=== PATIENT | female | born 1970 | race Caucasian/White ===

== ENCOUNTER 2018-05-31 18:21 | Emergency (ER) | payer OTHER ==
[~2018-05-31] VITALS: Ht 147.3 cm; Wt 63.6 kg
[2018-05-31 18:24] VITALS: Ht 147.3 cm; Wt 63.6 kg
[2018-05-31] MEDS ORDERED: PRINIVIL10 MG PO (18:27)
[2018-05-31] MEDS ORDERED: CYMBALTA60 MG PO (18:27)
[2018-05-31] MEDS ORDERED: ABILIFY2 MG PO (18:27)
[2018-05-31] MEDS ORDERED: CYCLOBENZAPRINE10 MG PO (18:28)
[2018-05-31] MEDS ORDERED: MORPHINE SULFAT30 M4 PO (18:28)
[2018-05-31] MEDS ORDERED: MOBIC7.5 MG PO (18:28)
[2018-05-31 18:55] LABS: BASOPHILS 0.2 % (0-2); EOSINOPHILS 4.7 % (0-7); HEMATOCRIT 28.8 % (36.0-48.0); HEMOGLOBIN 9.7 g/dL (12-16); IMMATURE GRANULOCYTES 0.2 % (0-5); LYMPHOCYTES 27.5 % (15-50); MCH 30.8 pg (26.0-34.0); MCHC 33.7 g/dL (31.0-37.0); MCV 91.4 fL (80.0-100.0); MEAN PLATELET VOLUME 8.8 fL (7.4-10.4); MONOCYTES 4.1 % (2-11); NEUTROPHILS 63.3 % (40-80); PLATELET COUNT 295 10x3/uL (130-400); RBC 3.15 10x6/uL (4.00-5.40); RDW 12.8 % (11.5-14.5); WBC 9.2 10x3/uL (4.8-10.8)
[2018-05-31 19:04] LABS: INR 0.96 (0.85-1.17); PROTIME 12.3 SECONDS (11.6-15.0)
[2018-05-31 19:10] LABS: ALBUMIN 3.1 g/dL (3.4-5.0); ALKALINE PHOSPHATASE 78 U/L (46-116); ALT (SGPT) 39 U/L (10-68); BILIRUBIN - TOTAL 0.25 mg/dL (0.2-1.3); CALC OSMOLALITY 273 mosm/kg (275-300); CALCIUM 9.6 mg/dL (8.5-10.1); CARBON DIOXIDE 28.7 mmol/L (21.0-32.0); CHLORIDE - SERUM 100 mmol/L (98-107); CREATININE - SERUM 1.4 mg/dL (0.6-1.3); GLUCOSE 95 mg/dL (74-106); POTASSIUM - SERUM 4.1 mmol/L (3.5-5.1); SODIUM 136 mmol/L (136-145); UREA NITROGEN 18 mg/dL (7-18); eGFR NON AFRICAN AMERICAN 43 mL/min (90-120)
[2018-05-31 19:22] LABS: CKMB 3.3 U/L (0.0-3.6); CREATINE KINASE 264 UL (21-215); PRO BNP 79 pg/mL (0-125)
[2018-05-31 19:24] LABS: TROPONIN-I < 0.017 ng/mL (0.000-0.060)
[2018-05-31] MEDS ORDERED: FUROSEMIDE20 MG PO (22:43)
[2018-06-01] VITALS: BP 130/78
== END 2018-06-01 00:02 | disposition home or self-care (01) ==
LOC: D.ER 18:21
PROVIDERS: Emergency Medicine
DX: R60.0 Localized edema (principal); I10 Essential (primary) hypertension

== ENCOUNTER 2019-06-01 14:31 | Emergency (ER) | payer OTHER ==
[~2019-06-01] VITALS: Ht 147.3 cm; Wt 86.4 kg
[2019-06-01 14:31] VITALS: Ht 147.3 cm; Wt 86.4 kg
[~2019-06-01 14:31] MED LIST: ABILIFY2 MG PO; CYCLOBENZAPRINE10 MG PO; CYMBALTA60 MG PO; FUROSEMIDE20 MG PO; MOBIC7.5 MG PO; MORPHINE SULFAT30 M4 PO; PRINIVIL10 MG PO
[2019-06-01] MEDS ORDERED: FERROUS SULFAT325 MG PO (14:40)
[2019-06-01] MEDS ORDERED: HYDROCODON-ACE1 EAC2 PO (14:41)
[2019-06-01] MEDS ORDERED: ADIPEX-P37.5 M1 PO (14:41)
[2019-06-01 15:13] LABS: BASOPHILS 0.2 % (0-2); EOSINOPHILS 6.7 % (0-7); HEMATOCRIT 34.3 % (36.0-48.0); HEMOGLOBIN 11.6 g/dL (12-16); IMMATURE GRANULOCYTES 0.6 % (0-5); LYMPHOCYTES 30.4 % (15-50); MCHC 33.8 g/dL (31.0-37.0); MCV 88.6 fL (80.0-100.0); MEAN PLATELET VOLUME 8.7 fL (7.4-10.4); MONOCYTES 5.3 % (2-11); NEUTROPHILS 56.8 % (40-80); PLATELET COUNT 262 10x3/uL (130-400); RBC 3.87 10x6/uL (4.00-5.40); RDW 13.1 % (11.5-14.5); WBC 10.3 10x3/uL (4.8-10.8)
[2019-06-01 15:21] LABS: CALC OSMOLALITY 279 mosm/kg (275-300); CALCIUM 8.8 mg/dL (8.5-10.1); CHLORIDE - SERUM 102 mmol/L (98-107); CREATININE - SERUM 1.2 mg/dL (0.6-1.3); GLUCOSE 101 mg/dL (74-106); POTASSIUM - SERUM 3.5 mmol/L (3.5-5.1); SODIUM 141 mmol/L (136-145); UREA NITROGEN 10 mg/dL (7-18); eGFR NON AFRICAN AMERICAN 51 mL/min (90-120)
[2019-06-01 15:30] LABS: ALBUMIN 3.1 g/dL (3.4-5.0); ALKALINE PHOSPHATASE 108 U/L (46-116); ALT (SGPT) 44 U/L (10-68); AMYLASE - SERUM 69 U/L (25-115); BILIRUBIN - TOTAL 0.25 mg/dL (0.2-1.3); LIPASE 267 U/L (73-393)
[2019-06-01 15:31] LABS: TROPONIN-I < 0.017 ng/mL (0.000-0.060)
[2019-06-01 17:03] LABS: UDS - AMPHET POSITIVE QUAL (NEGATIVE); UDS - BARB NEGATIVE QUAL (NEGATIVE); UDS - BENZO NEGATIVE QUAL (NEGATIVE); UDS - COCAINE NEGATIVE QUAL (NEGATIVE); UDS - OPIATE POSITIVE QUAL (NEGATIVE); UDS - PCP NEGATIVE QUAL (NEGATIVE); UDS - THC NEGATIVE QUAL (NEGATIVE)
[2019-06-01 17:08] LABS: APPEARANCE CLEAR (CLEAR); BILIRUBIN NEGATIVE (NEGATIVE); COLOR YELLOW (YELLOW); GLUCOSE NEGATIVE (NEGATIVE); KETONE NEGATIVE (NEGATIVE); NITRITE NEGATIVE (NEGATIVE); PROTEIN NEGATIVE (NEGATIVE); SPECIFIC GRAVITY 1.015 (1.005-1.020); UROBILINOGEN NORMAL (NORMAL)
[2019-06-01] MEDS ORDERED: ZOFRAN4 MG PO (17:24)
[2019-06-01 18:35] VITALS: BP 139/80
== END 2019-06-01 18:35 | disposition home or self-care (01) ==
LOC: D.ER 14:31
PROVIDERS: Emergency Medicine
DX: R11.2 Nausea with vomiting, unspecified (principal); F15.93 Other stimulant use, unspecified with withdrawal; I10 Essential (primary) hypertension; Z72.0 Tobacco use